=== PATIENT | male | born 1970 | race American Indian/Alaskan Native ===

== ENCOUNTER 2018-11-06 18:35 | Emergency (ER) | payer SELFPAY ==
--- NOTE | 2018-11-06 21:12 | Emergency Department Report ---
ED CPR HPI - General Chief Complaint: Cardiac Arrest/CPR Stated Complaint: CARDIAC ARREST Time Seen by Provider: 11/06/18 19:09 Source: EMS Mode of arrival: Stretcher Limitations: Other - History of Present Illness Initial Comments: 48-year-old male presents to ED in cardiac arrest. Patient's significant other reports the patient has been experiencing chest pain recently. Patient was leaving an appointment with the insulation supervisor, when he began to experience chest pain while driving, and then became unresponsive. EMS was called, patient found to be in cardiac arrest with a rhythm of V. fib. EMS reports patient was defibrillated 4 times, received amiodarone 300 mg, Narcan, 1 amp of bicarbonate, epinephrine 5 doses. Patient intubated by EMS. Patient in continued arrest and V. fib upon EMS arrival to ED. EMS states ACLS ongoing for 30 min upon ED arrival Complaint: other (witnessed arrest) Place: other (in the car) Bystander CPR Performed: No Initial Findings in the Field: unresponsive, no respirations, no pulse, VTACH/VFIB ROSC in the Field: No Associated Injuries: No Associated Symptoms: chest pain Treatments Prior to Arrival: intubation, chest compressions, defribrillated shocks # (4), epinephrine mgs # (5), sodium bicarbonate, amiodarone, other (narcan) - Related Data Allergies Allergy/AdvReac Type Severity Reaction Status Date / Time Unable to Assess Allergy Unverified 11/06/18 19:20 ED Review of Systems ROS: Stated complaint: CARDIAC ARREST Other details as noted in HPI Comment: Unobtainable due to pts medical conditions Cardiovascular: chest pain ED Past Medical Hx - Past Medical History Hx Hypertension: Yes Hx Heart Attack/AMI: Yes - Surgical History Additional Surgical History: back surg ED Physical Exam - General Limitations: Other General appearance: other (unresponsive) - Head Head exam: Present: atraumatic, normocephalic - Eye Eye exam: Present: normal appearance - ENT ENT exam: Present: other (pt is intubated) - Neck Neck exam: Present: normal inspection - Respiratory Respiratory exam: Present: normal lung sounds bilaterally, other (no spontaneous breaths) - Cardiovascular Cardiovascular Exam: Present: other (no palpable pulse) - GI/Abdominal GI/Abdominal exam: Present: soft. Absent: distended - Extremities Exam Extremities exam: Present: normal inspection - Neurological Exam Neurological exam: Present: other (GCS= 3) - Skin Skin exam: Present: warm, dry ED Medical Decision Making - Medical Decision Making 48-year-old male presents to ED in cardiac arrest. ACLS already ongoing 30 mi nutes upon arrival. Patient in continued V. fib arrest. Received amiodarone, multiple doses of epinephrine from EMS. Upon ED arrival ACLS was continued according to guidelines. However, unable to achieve ROSC despite our efforts. Time of was called 18:58. Please see nurse's note for code details. Family notified. - Differential Diagnosis dysrrhythmia, ACS, aortic dissection Critical Care Time: Yes Critical care time in (mins) excluding proc time.: 35 Critical care attestation.: If time is entered above; I have spent that time in minutes in the direct care of this critically ill patient, excluding procedure time. Critical Care Time: 35 min ED Disposition Clinical Impression: Cardiac arrest Disposition: DC-20 Is pt being admited?: No Condition: Stable Referrals: MONSTER YOUSIF MD [Primary Care Provider] - 3-5 Days
== END 2018-11-07 03:30 ==
LOC: ED 18:35
DX: I46.9 Cardiac arrest, cause unspecified (principal); I10 Essential (primary) hypertension; I25.2 Old myocardial infarction; Z98.890 Other specified postprocedural states
CPT/HCPCS: 82962